=== PATIENT | female | born 1980 | race Caucasian/White ===

== ENCOUNTER 2018-03-20 22:59 | Emergency (ER) | payer OTHER ==
[~2018-03-20] VITALS: Ht 162.6 cm; Wt 60.0 kg
[2018-03-20 23:01] VITALS: TEMP 36.6; Ht 162.6 cm; Wt 60.0 kg
[2018-03-20] MEDS ORDERED: HYDROmorphone INJ 1 MG/ML SYR IV STA (23:12)
[2018-03-20] MEDS ORDERED: ONDANSETRON INJ 2 MG/ML 2 ML VIAL IV STA (23:12)
[2018-03-20] MEDS ORDERED: SODIUM CHLORIDE 0.9% 1000ML 1,000 ML IV STA (23:12)
[2018-03-20] MEDS ORDERED: DiphenhydrAMINE HCL 50 MG/ML VIAL IV STA (23:12)
[2018-03-20] MEDS ORDERED: FAMOTIDINE IV INJ 20 MG in DEXTROSE 5% 100ML 100 ML IV STA (23:12)
[2018-03-20 23:23] LABS: BASO ABS # 0.09 K/uL (0-0.2); EOS ABS # 0.19 K/uL (0-0.5); HEMATOCRIT 43.3 % (37-47); HEMOGLOBIN 14.9 g/dL (12.0-16.0); IG# 0.04 K/uL (0.00-0.02); LYMPH % 47.7 %; LYMPH ABS # 4.44 K/uL (1.2-3.4); MEAN CELL VOLUME 91.9 fL (80-100); MEAN CORPUSCULAR HEMOGLOBIN 31.6 pg (25-34); MEAN CORPUSCULAR HGB CONC 34.4 g/dl (32-36); MEAN PLATELET VOLUME 9.3 fL (7.4-10.4); MONO % 6.9 %; MONO ABS # 0.64 K/uL (0.11-0.59); PLATELET COUNT 440 K/uL (130-400); RED CELL DISTRIBUTION WIDTH CV 12.9 % (11.5-14.5); RED CELL DISTRIBUTION WIDTH SD 43.5 fL (36.4-46.3)
[2018-03-20] MEDS ORDERED: FAMOTIDINE 20MG/5ML IV PUSH IV ONE (23:29)
[2018-03-20 23:46] LABS: ALBUMIN 4.1 gm/dl (3.4-5.0); ALT/SGPT 13 U/L (12-78); AST/SGOT 18 U/L (15-37); BLOOD UREA NITROGEN 4 mg/dl (7-18); CALCIUM 8.3 mg/dl (8.5-10.1); CARBON DIOXIDE 21 mmol/L (21-32); CREATININE 0.84 mg/dl (0.60-1.20); GLUCOSE 84 mg/dl (70-99); POTASSIUM 3.5 mmol/L (3.5-5.1); SODIUM 144 mmol/L (136-145)
[2018-03-20 23:51] LABS: ALKALINE PHOSPHATASE 99 U/L (45-117)
[2018-03-20] MEDS ORDERED: PROMETHAZINE HCL INJ 12.5 MG in SODIUM CHLORIDE 0.9% 50ML 50 ML IV STA (23:53)
[2018-03-21] MEDS ORDERED: LEVE750T PO (00:39)
[2018-03-21] MEDS ORDERED: LAMO200T35 PO (00:40)
[2018-03-21] MEDS ORDERED: KPP/1000 PO (00:40)
[2018-03-21] MEDS ORDERED: PRLSR20 PO (00:41)
[2018-03-21] MEDS ORDERED: BCPILLS PO (00:41)
[2018-03-21] MEDS ORDERED: ONDANSETRON HOME PACK 4MG OD TAB PO ONE (01:45)
[2018-03-21] MEDS ORDERED: ONDA4TAB10 SL (01:50)
--- NOTE | 2018-03-21 01:50 | EMERGENCY ROOM VISIT NOTE ---
History First contact with patient: 23:04 Chief Complaint: ABDOMINAL PAIN Stated Complaint: PAIN IN CHEST Nursing Triage Summary: Pt's mother and father reports that pt had gall bladder removed and ever since she has had "episodes" of extreme abdominal pain. Pt was drinking tonight when pain began. Pt is screaming, guarding abdomen upon assessment. Pt is vomiting. History of Present Illness The patient is a 37 year old female who presents to the Emergency Room with complaints of abdominal pain and vomiting. Patient states she has frequent episodes of abdominal pain and vomiting since having her gallbladder removed in 2012. She states that she has had 4-5 episodes this past year. She reports burning pain in her abdomen rated a 10/10. She has been vomiting and dry heaving. Most recent episode was 3 months ago but she did not go to the ER for this. Additional history was obtained from the patient's fianc via telephone. He reports that the patient normally receives pain medications, Pepcid and Benadryl when she has these episodes. She has not followed up with her PCP or surgeon, but has had multiple tests performed for this including CT scans and scopes. History is somewhat limited as patient is uncooperative with answering questions. The patient is from [place] and is in town for her wedding. Patient does admit to drinking several alcoholic beverages prior to onset of symptoms. Her symptoms began 3-4 hours ago. Review of Systems A complete 10 point review of systems was reviewed with the patient with pertinent positives and negatives as per history of present illness. All else were negative. Past Medical/Surgical History Surgical Problems: (1) History of cholecystectomy Social History Smoking Status: Never Smoker Alcohol Use: occasionally Marital Status: in relationship Housing Status: lives with significant other (From [place]) Current/Historical Medications Scheduled Control Pills ( Control Pills), 1 TAB PO DAILY Lamotrigine (Lamictal), 200 MG PO BID Levetiracetam (Keppra), 1,500 MG PO QAM Levetiracetam (Keppra), 2,000 MG PO QPM Omeprazole (Prilosec), 20 MG PO DAILY Ondasetron Odt (Zofran Odt), 4 MG SL Q6H Physical Exam Vital Signs Date Time Temp Pulse Resp B/P (MAP) Pulse Ox O2 Delivery O2 Flow Rate FiO2 03/21/18 02:00 98 18 115/85 94 03/21/18 01:59 98 18 115/85 94 Room Air 03/21/18 00:55 114 18 110/92 94 Room Air 03/20/18 23:35 124 03/20/18 23:01 36.6 127 24 129/81 99 Room Air Physical Exam VITALS: Vitals are noted on the nurse's note and reviewed by myself. Vital signs stable. GENERAL: This is a 37-year-old female, writhing in bed, moaning and screaming. SKIN: The skin was without rashes. EARS: External auditory canals clear, tympanic membranes pearly malin without erythema or effusion bilaterally. EYES: Pupils equal round and reactive to light and accommodation. MOUTH: Mucous membranes moist. Tonsils are not enlarged. Pharynx without erythema or exudate. NECK: Supple without nuchal rigidity. No lymphadenopathy. No thyromegaly. Cervical spine is nontender. No JVD. HEART: Regular rate and rhythm without murmurs gallops or rubs. LUNGS: Clear to auscultation bilaterally without wheezes, rales or rhonchi. ABDOMEN: Positive bowel sounds x 4. Soft, no tenderness to palpation. NEURO: Patient was alert and oriented to person place and time. Medical Decision & Procedures Laboratory Results 03/20/18 23:10 Red Blood Count 4.71, Mean Corpuscular Volume 91.9, Mean Corpuscular Hemoglobin 31.6, Mean Corpuscular Hemoglobin Concent 34.4, Mean Platelet Volume 9.3, Neutrophils (%) (Auto) 42.0, Lymphocytes (%) (Auto) 47.7, Monocytes (%) (Auto) 6.9, Eosinophils (%) (Auto) 2.0, Basophils (%) (Auto) 1.0, Neutrophils # (Auto) 3.90, Lymphocytes # (Auto) 4.44, Monocytes # (Auto) 0.64, Eosinophils # (Auto) 0.19, Basophils # (Auto) 0.09 03/20/18 23:10 Test 03/20/18 23:10 03/20/18 23:59 03/21/18 01:05 White Blood Count 9.30 K/uL (4.8-10.8) Red Blood Count 4.71 M/uL (4.2-5.4) Hemoglobin 14.9 g/dL (12.0-16.0) Hematocrit 43.3 % (37-47) Mean Corpuscular Volume 91.9 fL (80-100) Mean Corpuscular Hemoglobin 31.6 pg (25-34) Mean Corpuscular Hemoglobin Concent 34.4 g/dl (32-36) Platelet Count 440 K/uL (130-400) Mean Platelet Volume 9.3 fL (7.4-10.4) Neutrophils (%) (Auto) 42.0 % Lymphocytes (%) (Auto) 47.7 % Monocytes (%) (Auto) 6.9 % Eosinophils (%) (Auto) 2.0 % Basophils (%) (Auto) 1.0 % Neutrophils # (Auto) 3.90 K/uL (1.4-6.5) Lymphocytes # (Auto) 4.44 K/uL (1.2-3.4) Monocytes # (Auto) 0.64 K/uL (0.11-0.59) Eosinophils # (Auto) 0.19 K/uL (0-0.5) Basophils # (Auto) 0.09 K/uL (0-0.2) RDW Standard Deviation 43.5 fL (36.4-46.3) RDW Coefficient of Variation 12.9 % (11.5-14.5) Immature Granulocyte % (Auto) 0.4 % Immature Granulocyte # (Auto) 0.04 K/uL (0.00-0.02) Anion Gap 9.0 mmol/L (3-11) Est Creatinine Clear Calc Drug Dose 80.8 ml/min Estimated GFR () 104.4 Estimated GFR (Non- 90.0 BUN/Creatinine Ratio 5.1 (10-20) Calcium Level 8.3 mg/dl (8.5-10.1) Total Bilirubin 0.2 mg/dl (0.2-1) Aspartate Amino Transf (AST/SGOT) 18 U/L (15-37) Alanine Aminotransferase (ALT/SGPT) 13 U/L (12-78) Alkaline Phosphatase 99 U/L (45-117) Troponin I < 0.015 ng/ml (0-0.045) Total Protein 8.0 gm/dl (6.4-8.2) Albumin 4.1 gm/dl (3.4-5.0) Globulin 3.9 gm/dl (2.5-4.0) Albumin/Globulin Ratio 1.1 (0.9-2) Ethyl Alcohol mg/dL 185.0 mg/dl (0-3) Urine Color YELLOW Urine Appearance CLEAR (CLEAR) Urine pH 5.0 (4.5-7.5) Urine Specific [place] 1.010 (1.000-1.030) Urine Protein NEG (NEG) Urine Glucose (UA) NEG (NEG) Urine Ketones NEG (NEG) Urine Occult Blood NEG (NEG) Urine Nitrite NEG (NEG) Urine Bilirubin NEG (NEG) Urine Urobilinogen NEG (NEG) Urine Leukocyte Esterase SMALL (NEG) Urine WBC (Auto) 1-5 /hpf (0-5) Urine RBC (Auto) 0-4 /hpf (0-4) Urine Hyaline Casts (Auto) 0 /lpf (0-5) Urine Epithelial Cells (Auto) 20-30 /lpf (0-5) Urine Bacteria (Auto) NEG (NEG) Urine Test NEG (NEG) Urine Opiates Screen POS (NEG) Urine Methadone, Qualitative NEG (NEG) Urine Barbiturates NEG (NEG) Urine Phencyclidine (PCP) Level NEG (NEG) Ur Amphetamine/Methamphetamine NEG (NEG) MDMA (Ecstasy) Screen NEG (NEG) Urine Benzodiazepines Screen NEG (NEG) Urine Cocaine Metabolite NEG (NEG) Urine Marijuana (THC) NEG (NEG) Medications Administered Medications (Trade) Dose Ordered Sig/Kelli Route Start Time Stop Time Status Last Admin Dose Admin Sodium Chloride 1,000 ml @ 999 mls/hr Q1H1M STAT IV 03/20/18 23:12 03/21/18 00:12 DC 03/20/18 23:23 999 MLS/HR Hydromorphone HCl (Dilaudid Inj) 1 mg NOW STAT IV 03/20/18 23:12 03/20/18 23:15 DC 03/20/18 23:23 1 MG Diphenhydramine HCl (Benadryl Inj) 25 mg NOW STAT IV 03/20/18 23:12 03/20/18 23:15 DC 03/20/18 23:23 25 MG Ondansetron HCl (Zofran Inj) 4 mg NOW STAT IV 03/20/18 23:12 03/20/18 23:15 DC 03/20/18 23:23 4 MG Famotidine (Pepcid 20mg Iv Push) 20 mg STK-MED ONCE IV 03/20/18 23:29 03/20/18 23:31 DC 03/20/18 23:41 20 MG Promethazine HCl 12.5 mg/Sodium Chloride 50.5 ml @ 204 mls/hr NOW STAT IV 03/20/18 23:53 03/21/18 00:07 DC 03/21/18 00:35 204 MLS/HR Ondansetron HCl (ZOFRAN ODT 4MG Home Pack) 1 homepack UD ONCE PO 03/21/18 01:45 03/21/18 01:46 DC 03/21/18 01:52 1 HOMEPACK ECG Per My Interpretation Indication: abdominal pain Rate (beats per minute): 113 Rhythm: sinus tachycardia Findings: no acute ischemic change, other (rate related st abnormality) Comparison ECG Date: no prior available ED Course The patient was evaluated as above. Labs were drawn and IV access was obtained. Patient was medicated with 1 L normal saline solution, 1 mg Dilaudid, 25 mg Benadryl, and 4 mg Zofran IV. She was also given 20 mg Pepcid as this has helped her in the past. Patient was reevaluated and was feeling better, but still nauseous. She was given 12.5 mg Phenergan IV. Patient was reevaluated by myself and was sleeping. She will be discharged home with home pack and prescription of Zofran. Discharge instructions were reviewed with the patient. The patient verbalized understanding of my assessment and treatment plan and was discharged home in good condition. Medical Decision Differential diagnosis includes bowel obstruction, pancreatitis, cyclical vomiting syndrome, colitis, gastroenteritis, appendicitis, among others. The patient is a 37-year-old female who presents today complaining of abdominal pain and vomiting. Patient is anxious appearing on initial evaluation and is moaning and screaming in pain. According to the patient as well as her family members, she has frequent episodes similar to this. Patient reports this is exactly like her previous episodes and she has had workup for this in the past. She has no abdominal tenderness on exam. She is tachycardic but vital signs are otherwise all within normal limits. Labs revealed no leukocytosis, anemia or concerning electrolyte abnormalities. Urinalysis was not suggestive of infection. Urine was negative. Tox screen negative. Patient does have elevated alcohol at 186. She was treated with multiple antiemetics as well as Dilaudid for pain as above with improvement of symptoms. She was reevaluated by myself and was sleeping. She will be discharged home with home pack of Zofran and was advised to follow-up with her PCP when she returns home. The patient's case was reviewed with Dr. Kelly, ED attending physician, who agreed with my assessment and treatment plan. Based on the patient's presentation and work up, I feel the patient is stable for outpatient treatment. The patient was educated to return to the emergency department for any worsening of their current condition or new/concerning symptoms. She will follow up with her PCP. Medication Reconcilliation Current Medication List: was personally reviewed by me Blood Pressure Screening Patient's blood pressure: Normal blood pressure Impression Primary Impression: Vomiting Departure Information Dispostion Home / Self-Care Condition GOOD Prescriptions Ondasetron Odt (ZOFRAN ODT) 4 Mg Tab 4 MG SL Q6H for Nausea, #15 TAB Prov: Alexandria Choudhury ., RICHELLE 03/21/18 Referrals No Doctor, Assigned (PCP) Patient Instructions My [facility] Additional Instructions You have been prescribed Zofran to be used for any nausea or vomiting. Take as prescribed. For pain control, you can use the following [id number] medicines (if >12 yo): - Regular strength (325mg/tab) Tylenol (acetaminophen) 2 tabs every 4-6 hours as needed. Do not exceed 12 tablets in a 24 hour period. Avoid taking more than 4 grams (4000 mg) of Tylenol per day. This includes any other sources of acetaminophen you may take on a regular basis. - Regular strength (200 mg/tab) Advil (ibuprofen) 1-2 tabs every 4-6 hours as needed. Do not exceed a dose of 3200 mg per day. Rest and drink plenty of fluids. Keep a bland diet for the next few days. Follow-up with your primary care provider when possible. Return here for worsening pain, vomiting, or other new/concerning symptoms. Problem Qualifiers Primary Impression: Vomiting Vomiting type: unspecified Vomiting Intractability: non-intractable Nausea presence: with nausea Qualified Codes: R11.2 - Nausea with vomiting, unspecified
[2018-03-21 02:00] VITALS: BP 115/85; PULSE 98; O2SAT 94
== END 2018-03-21 02:01 | disposition home or self-care (01) ==
LOC: C.EDB 22:59
DX: R11.2 Nausea with vomiting, unspecified (principal); R10.9 Unspecified abdominal pain; Z79.3 Long term (current) use of hormonal contraceptives; Z79.899 Other long term (current) drug therapy

== ENCOUNTER 2018-03-25 23:04 | Emergency (ER) | payer OTHER ==
[~2018-03-25] VITALS: Ht 162.6 cm; Wt 60.3 kg
[~2018-03-25 23:04] MED LIST: BCPILLS PO; KPP/1000 PO; LAMO200T35 PO; LEVE750T PO; ONDA4TAB10 SL; PRLSR20 PO
[2018-03-25 23:11] VITALS: Ht 162.6 cm; Wt 60.3 kg
[2018-03-25] MEDS ORDERED: LORAZEPAM 2 MG/ML 1 ML VIAL IV STA (23:19)
[2018-03-25] MEDS ORDERED: ONDANSETRON INJ 2 MG/ML 2 ML VIAL IV STA (23:20)
--- NOTE | 2018-03-25 23:29 | EMERGENCY ROOM VISIT NOTE ---
History Report prepared by Miguel Ángel: Gina Dorsey Under the Supervision of: Dr. Jodi Kelly D.O. First contact with patient: 23:05 Chief Complaint: ABDOMINAL PAIN Stated Complaint: AB PAIN History of Present Illness The patient is a 37 year old female who presents to the Emergency Room brought in by EMS with complaints of persistent abdominal pain since one hour ago. Per mikie, she has nausea and vomiting. He states that she was seen here last week for similar symptoms. He reports the patient has had four related hospital visits in the last year. He notes the pain comes regardless of the type of food that she consumes. Per mikie, there have been no confirmed diagnoses. He reports the patient does not currently see a PCP. The patient reports that her last episodes prior to last week was four months ago and did not last this long. She reports a history of seizures. She states that she had one drink with dinner tonight. She denies the previous episodes are related to drinking alcohol. She notes that she had acid reflux for two days after her last visit to the ED. She notes that she vomited four times this evening. She describes the pain as squeezing. She notes eating a cheese steak sandwich for dinner. Source of History: patient, spouse/significant other Onset: one hour ago Position: abdomen Quality: other (squeezing) Timing: other (persistent) Associated Symptoms: + nausea, + vomiting Review of Systems See HPI for pertinent positives & negatives. A total of 10 systems reviewed and were otherwise negative. Past Medical & Surgical Surgical Problems: (1) History of cholecystectomy Family History No pertinent family history Social History Smoking Status: Never Smoker Smokeless Tobacco Use: No Alcohol Use: occasionally Drug Use: none Marital Status: in relationship Housing Status: lives with significant other Occupation Status: employed Current/Historical Medications Scheduled Control Pills ( Control Pills), 1 TAB PO DAILY Lamotrigine (Lamictal), 200 MG PO BID Levetiracetam (Keppra), 1,500 MG PO QAM Levetiracetam (Keppra), 2,000 MG PO QPM Omeprazole (Prilosec), 20 MG PO DAILY Scheduled PRN Ondasetron Odt (Zofran Odt), 4 MG SL Q6H PRN for Nausea Allergies Coded Allergies: Iodinated Diagnostic Agents (Verified Allergy, Severe, ANAPHYLAXIS, ) Shellfish (Verified Allergy, Severe, ANAPHYLAXIS, 03/21/18) Vancomycin (Verified Allergy, Intermediate, RED MAN SYNDROME, 03/21/18) Cephalexin (Verified Allergy, Mild, RASH, 03/21/18) Erythromycin (Verified Allergy, Mild, RASH, 03/21/18) Uncoded Allergies: PENICILLIN (Allergy, Severe, ANAPHYLAXIS, 03/21/18) Physical Exam Vital Signs Date Time Temp Pulse Resp B/P (MAP) Pulse Ox O2 Delivery O2 Flow Rate FiO2 03/26/18 01:44 95 18 124/86 99 Room Air 03/26/18 00:21 86 16 112/65 97 Room Air 03/25/18 23:32 107 03/25/18 23:11 121 18 116/91 95 Room Air Physical Exam General: Extraordinarily uncomfortable, cant sit still. Original presentation was on all fours HEENT: Head - normocephalic and atraumatic Pupils are equal, round, and reactive to light. Extraocular eye muscles are intact, and sclera are anicteric. Nose - moist nasal mucosa without discharge. Mouth - moist buccal mucosa. Oropharynx is nonerythematous and there is no tonsillar exudate or edema noted. Neck: Supple; no JVD, nuchal rigidity, cervical lymphadenopathy. Heart: Tachycardic rate, regular rhythm. There is a normal S1 and S2 with no murmurs, clicks, or gallops appreciated. Lungs: Clear to auscultation bilaterally with no wheezes, rales, or rhonchi. Abdomen: Soft, Pain in epigastrium with palpation. nondistended, with good bowel sounds. There are no palpable pulsatile masses or hepatosplenomegaly. There is no guarding, rigidity, or rebound noted. Extremities: No evidence of cyanosis, clubbing, or edema. There are easily palpable peripheral pulses. Skin: warm with good turgor and no rashes. Diaphoretic. Medical Decision & Procedures ER Provider Diagnostic Interpretation: Radiology results as stated below per my review and interpretation: Chest/Abdomen XR: Obstruction series: No free air under the diaphragm. No hiatal hernia. No evidence of bowel obstruction. Moderate colonic fecal retention. Laboratory Results 03/25/18 23:41 Red Blood Count 4.13, Mean Corpuscular Volume 90.3, Mean Corpuscular Hemoglobin 32.0, Mean Corpuscular Hemoglobin Concent 35.4, Mean Platelet Volume 9.3, Neutrophils (%) (Auto) 59.3, Lymphocytes (%) (Auto) 33.5, Monocytes (%) (Auto) 5.0, Eosinophils (%) (Auto) 1.3, Basophils (%) (Auto) 0.6, Neutrophils # (Auto) 4.12, Lymphocytes # (Auto) 2.33, Monocytes # (Auto) 0.35, Eosinophils # (Auto) 0.09, Basophils # (Auto) 0.04 03/25/18 23:41 Test 03/25/18 23:41 03/25/18 23:44 03/26/18 00:14 White Blood Count 6.95 K/uL (4.8-10.8) Red Blood Count 4.13 M/uL (4.2-5.4) Hemoglobin 13.2 g/dL (12.0-16.0) Hematocrit 37.3 % (37-47) Mean Corpuscular Volume 90.3 fL (80-100) Mean Corpuscular Hemoglobin 32.0 pg (25-34) Mean Corpuscular Hemoglobin Concent 35.4 g/dl (32-36) Platelet Count 299 K/uL (130-400) Mean Platelet Volume 9.3 fL (7.4-10.4) Neutrophils (%) (Auto) 59.3 % Lymphocytes (%) (Auto) 33.5 % Monocytes (%) (Auto) 5.0 % Eosinophils (%) (Auto) 1.3 % Basophils (%) (Auto) 0.6 % Neutrophils # (Auto) 4.12 K/uL (1.4-6.5) Lymphocytes # (Auto) 2.33 K/uL (1.2-3.4) Monocytes # (Auto) 0.35 K/uL (0.11-0.59) Eosinophils # (Auto) 0.09 K/uL (0-0.5) Basophils # (Auto) 0.04 K/uL (0-0.2) RDW Standard Deviation 42.3 fL (36.4-46.3) RDW Coefficient of Variation 12.8 % (11.5-14.5) Immature Granulocyte % (Auto) 0.3 % Immature Granulocyte # (Auto) 0.02 K/uL (0.00-0.02) Anion Gap 7.0 mmol/L (3-11) Est Creatinine Clear Calc Drug Dose 73.0 ml/min Estimated GFR () 92.3 Estimated GFR (Non- 79.6 BUN/Creatinine Ratio 7.5 (10-20) Calcium Level 8.8 mg/dl (8.5-10.1) Total Bilirubin 0.4 mg/dl (0.2-1) Direct Bilirubin 0.1 mg/dl (0-0.2) Aspartate Amino Transf (AST/SGOT) 17 U/L (15-37) Alanine Aminotransferase (ALT/SGPT) 11 U/L (12-78) Alkaline Phosphatase 74 U/L (45-117) Total Protein 7.3 gm/dl (6.4-8.2) Albumin 3.9 gm/dl (3.4-5.0) Lipase 181 U/L (73-393) Bedside Lactic Acid Venous 1.22 mmol/L (0.90-1.70) Urine Color YELLOW Urine Appearance CLEAR (CLEAR) Urine pH 5.0 (4.5-7.5) Urine Specific [place] 1.022 (1.000-1.030) Urine Protein NEG (NEG) Urine Glucose (UA) NEG (NEG) Urine Ketones NEG (NEG) Urine Occult Blood NEG (NEG) Urine Nitrite NEG (NEG) Urine Bilirubin NEG (NEG) Urine Urobilinogen NEG (NEG) Urine Leukocyte Esterase TRACE (NEG) Urine WBC (Auto) 1-5 /hpf (0-5) Urine RBC (Auto) 0-4 /hpf (0-4) Urine Hyaline Casts (Auto) 1-5 /lpf (0-5) Urine Epithelial Cells (Auto) >30 /lpf (0-5) Urine Bacteria (Auto) NEG (NEG) Urine Test NEG (NEG) Laboratory results per my review. Medications Administered Medications (Trade) Dose Ordered Sig/Kelli Route Start Time Stop Time Status Last Admin Dose Admin Lorazepam (Ativan Inj) 2 mg NOW STAT IV 03/25/18 23:19 03/25/18 23:22 DC 03/25/18 23:29 2 MG Ondansetron HCl (Zofran Inj) 4 mg NOW STAT IV 03/25/18 23:20 03/25/18 23:22 DC 03/25/18 23:29 4 MG Pantoprazole Sodium 40 mg/ Syringe 10 ml @ 5 mls/min NOW ONCE IV 03/26/18 01:45 03/26/18 01:46 DC 03/26/18 01:43 5 MLS/MIN Procedure 2319: Ordered Ativan 2 mg IV 2330: Ordered Zofran 4 mg IV 0145: Ordered Pantoprazole Sodium 40 mg/Syringe 10 ml @ 5 mls/min IV ED Course 2312: Past medical records reviewed. The patient was evaluated in room A12B. A complete history and physical exam was performed. IV lock was established. Labs were drawn as above. 2319: Ordered Ativan 2 mg IV 2330: Ordered Zofran 4 mg IV 2352: I reassessed the patient at this time. She is asleep. 0037: I reassessed the patient at this time. She notes that she still has pain in her epigastrium. I reexamined her and she has no pain now with my palpation. We talked about the possibility of a hiatal hernia, GERD and a perforated ulcer. The patient went for an obstruction series which was unremarkable. 0140: I reassessed the patient at this time. She still has slight pain in her epigastrium. She takes Prilosec every morning. She requested Pepcid. The patient will be given Protonix. I discussed the results and treatment plan with the patient. I answered all pertaining questions that she had. She expressed understanding and verbalized agreement. The patient will be discharged home. 0145: Ordered Pantoprazole Sodium 40 mg/Syringe 10 ml @ 5 mls/min IV Medical Decision The patient is a 37 year old female who presents to the ED with abdominal pain. Differential diagnosis includes superior mesenteric artery syndrome, retained common bile duct stone, pancreatitis, anxiety, gastritis, GERD, and esophagitis. Lab results showed: Normal WBC. Normal H&H. Lactic acid 1.2. Normal Lipase. Normal LFTs. Normal renal function. Urine: Negative . No signs of infection. This is a 37-year-old female patient who presents to the emergency department with severe and exquisite epigastric abdominal pain. This is the patient's second episode this week. Her workup a couple of days ago here in the emergency department was unremarkable. The patient is visiting [facility] as she is scheduled to get in 2 days. The patient's father accompanies her and questioned whether or not her symptoms may be secondary to stress. The patient had significant relief of her discomfort with the IV Ativan and Zofran. The patient described her symptoms as a squeezing sensation or spasm. Laboratory studies were unremarkable. The patient's symptoms may be consistent with esophagitis or esophageal spasm. The patient was comfortable at the time of discharge. I encouraged her to continue using the prescribed Prilosec and to take a bland diet over the next couple of days. Once she returns home, she will require close follow-up with GI for an EGD. The patient was told to return to the emergency department immediately if she had worsening pain, fevers or vomiting. Medication Reconcilliation Current Medication List: was personally reviewed by me Blood Pressure Screening Patient's blood pressure: Normal blood pressure Impression Primary Impression: Epigastric pain Scribe Attestation The scribe's documentation has been prepared under my direction and personally reviewed by me in its entirety. I confirm that the note above accurately reflects all work, treatment, procedures, and medical decision making performed by me. Departure Information Dispostion Home / Self-Care Referrals No Doctor, Assigned (PCP) Forms Call Back Authorization, HOME CARE DOCUMENTATION FORM, IMPORTANT VISIT INFORMATION Patient Instructions ED Epigastric Pain Rachel LUBIN [facility] Additional Instructions Rest. Take your Prilosec as directed Take a very bland diet. You should return to the ER for worsening pain, vomiting, fevers Avoid alcohol, caffeine, tobacco, chocolate, or spearmint Follow up with GI [facility] for an EGD
[2018-03-25 23:53] LABS: BASO % 0.6 %; BASO ABS # 0.04 K/uL (0-0.2); EOS % 1.3 %; EOS ABS # 0.09 K/uL (0-0.5); HEMATOCRIT 37.3 % (37-47); HEMOGLOBIN 13.2 g/dL (12.0-16.0); IG# 0.02 K/uL (0.00-0.02); LYMPH % 33.5 %; LYMPH ABS # 2.33 K/uL (1.2-3.4); MEAN CELL VOLUME 90.3 fL (80-100); MEAN CORPUSCULAR HGB CONC 35.4 g/dl (32-36); MEAN PLATELET VOLUME 9.3 fL (7.4-10.4); MONO ABS # 0.35 K/uL (0.11-0.59); NEUT % 59.3 %; NEUT ABS # 4.12 K/uL (1.4-6.5); PLATELET COUNT 299 K/uL (130-400); RED CELL DISTRIBUTION WIDTH CV 12.8 % (11.5-14.5); RED CELL DISTRIBUTION WIDTH SD 42.3 fL (36.4-46.3); WHITE BLOOD COUNT 6.95 K/uL (4.8-10.8)
[2018-03-26 00:19] LABS: ALBUMIN 3.9 gm/dl (3.4-5.0); CALCIUM 8.8 mg/dl (8.5-10.1); CREATININE 0.93 mg/dl (0.60-1.20); POTASSIUM 3.6 mmol/L (3.5-5.1); TOTAL PROTEIN 7.3 gm/dl (6.4-8.2)
[2018-03-26] MEDS ORDERED: ONDA4TAB10 SL (00:21)
[2018-03-26 01:44] VITALS: BP 124/86; PULSE 95; O2SAT 99
[2018-03-26] MEDS ORDERED: PANTOprazole INJ 40 MG in SYRINGE 0 ML IV ONE (01:45)
--- NOTE | 2018-03-26 06:36 | DIAGNOSTIC IMAGING REPORT ---
ABDOMEN 2VIEW W/PA CHEST RTN HISTORY: 37 years-old Female epigastric pain acute epigastric abdominal pain COMPARISON: None available TECHNIQUE: PA view of the chest with erect and supine views of the abdomen FINDINGS: The cardiomediastinal and hilar silhouettes are within normal limits. There is no pneumothorax, pleural effusion, focal airspace consolidation or overt pulmonary edema. The bones of the chest appear grossly intact. Cholecystectomy clips are noted. No pneumatosis or pneumoperitoneum identified. Bowel gas pattern is nonobstructive. Moderate stool volume about the right hemicolon. Renal shadows are obscured by bowel gas. No urolith identified. Mild sigmoidal scoliosis of the thoracolumbar spine. No fracture. IMPRESSION: 1. No acute process of the chest. 2. Nonobstructive bowel gas pattern without pneumoperitoneum. The above report was generated using voice recognition software. It may contain grammatical, syntax or spelling errors. Electronically signed by: Mansoor Cruz M.D. 03/26/2018 6:34 AM Dictated Date/Time: 03/26/2018 6:33 AM
== END 2018-03-26 02:11 | disposition home or self-care (01) ==
LOC: EDBD 23:04 → C.EDA 23:05
DX: R10.13 Epigastric pain (principal); R56.9 Unspecified convulsions; Z79.3 Long term (current) use of hormonal contraceptives; Z79.899 Other long term (current) drug therapy; Z88.0 Allergy status to penicillin; Z91.041 Radiographic dye allergy status; Z88.1 Allergy status to other antibiotic agents; Z91.013 Allergy to seafood